=== PATIENT | female | born 1995 | race African-American/Black ===

== ENCOUNTER 2018-04-13 13:00 | Emergency (ER) | payer OTHER ==
[2018-04-13 13:14] VITALS: BP 121/61; PULSE 87; TEMP 98.1; BMI 42.0
[2018-04-13] MEDS ORDERED: diphenhydrAMINE HCL 25 MG CAPSULE (FP) PO ONE ×2 (14:01→14:05)
[2018-04-13] MEDS ORDERED: DEXAMETHASONE SOD PHOSPHATE 10 MG/1 ML VIAL IM ONE (14:01)
[2018-04-13] MEDS ORDERED: DEXAMETHASONE SOD PHOSPHATE 10 MG/1 ML VIAL ONE (14:04)
--- NOTE | 2018-04-13 14:11 | PDOC ---
History of Present Illness - General Chief Complaint: Bite Stated Complaint: CHEST PAIN, BITE Time Seen by Provider: 04/13/18 13:43 History Source: Patient Exam Limitations: No Limitations - History of Present Illness Initial Comments: 04/13/18 14:03 Works at [employer] and was outside walking with and she was bitten by some type of insect. 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 After the bee sting states felt some chest heaviness and some shortness of breath however denied facial swelling lip swelling tongue swelling or difficulty obtaining air/wheezing. Was sent immediately to emergency department for evaluation Timing/Duration: reports: just prior to arrival, intermittent Severity: Yes: mild, moderate Location: reports: none Respiratory Risk Factors: reports: insect bite, insect sting Modifying Factors: worse with: antihistamine (uncertain as to type of insect) Past History - Travel Traveled outside of the country in the last 30 days: No Close contact w/someone who was outside of country & ill: No - Past Medical History Allergies/Adverse Reactions: Allergies Allergy/AdvReac Type Severity Reaction Status Date / Time No Known Allergies Allergy Verified 04/13/18 13:10 Home Medications: Ambulatory Orders NK [No Known Home Medication] 04/13/18 COPD: No DVT: No - Immunization History Immunization Up to Date: Yes - Suicide/Smoking/Psychosocial Hx Smoking History: Never smoked Hx Alcohol Use: No Drug/Substance Use Hx: No Review of Systems - Review of Systems Able to Perform ROS?: Yes Is the patient limited Turkish proficient: Yes Constitutional: Yes: See HPI. No: Symptoms Reported, Chills, Fever, Malaise HEENTM: No: Symptoms Reported, Nose Congestion, Throat Pain, Throat Swelling, Difficulty Swallowing, Mouth Swelling Respiratory: Yes: Symptoms reported, See HPI, Shortness of Breath. No: Cough, Wheezing Cardiac (ROS): Yes: See HPI. No: Symptoms Reported, Palpitations, Syncope All Other Systems: Reviewed and Negative *Physical Exam - Vital Signs Last Vital Signs Temp Pulse Resp BP Pulse Ox 98.1 F 87 15 121/61 100 04/13/18 13:10 04/13/18 13:10 04/13/18 13:10 04/13/18 13:10 04/13/18 13:10 - Physical Exam General Appearance: Yes: Nourished, Appropriately Dressed. No: Apparent Distress HEENT: positive: HEBERT, Normal ENT Inspection, TMs Normal, Pharynx Normal (no swelling or angioedema noted to face, lips, tongue or pharynx. Airway is patent without wheezing or obstruction.) Neck: positive: Supple. negative: Tender Respiratory/Chest: positive: Lungs Clear, Normal Breath Sounds. negative: Respiratory Distress, Rales, Wheezing Gastrointestinal/Abdominal: positive: Soft. negative: Tender Musculoskeletal: positive: Normal Inspection. negative: Decreased Range of Motion Extremity: positive: Normal Capillary Refill, Normal Range of Motion (swelling and tenderness to lesion that is on the lateral epicondyles of left elbow. Is tender to touch with mild erythema but patient has full range of motion to joint , and neurovascular intact distal to lesion. ) Integumentary: positive: Dry, Warm, Pale Neurologic: positive: cost estimating manager II-XII NML intact, Fully Oriented, Alert, Normal Mood/ Affect, Normal Response, Motor Strength 5/5 Progress Note - Progress Note Progress Note: Insect bite with mild ALLERGIC versus anxiety reaction. Patient medicated with Decadron and Benadryl and will observe for 90 minutes Medical Decision Making - Medical Decision Making 04/13/18 14:39 Patient medicated with Decadron 10 mg and Benadryl 25 mg but after approximately 20 minutes stated she did not wish to stay for observation., Her work called requesting her to return so released after take over. Patient denies any wheezing, swelling, any worsening symptoms states has not had any shortness of breath since her arrival to ER and signed out AGAINST MEDICAL ADVICE. Reviewed risks of swelling, palpitations, wheezing facial swelling. Encouraged to call [phone] if symptoms recur and patient signed information sheet/ medical record AMA sheet verbalizing understanding consequences including for signing out and leaving before treatment completed *DC/Admit/Observation/Transfer Diagnosis at time of Disposition: Allergic reaction to insect bite Insect bite Qualifiers: Encounter type: initial encounter Qualified Code(s): W57.XXXA - Bitten or stung by nonvenomous insect and other nonvenomous arthropods, initial encounter - Discharge Dispostion Disposition: AGAINST MEDICAL ADVICE Condition at time of disposition: Good Decision to Admit order: No - Referrals - Patient Instructions Printed Discharge Instructions: How to Care for an Insect Bite or Sting - Post Discharge Activity
--- NOTE | 2018-04-16 12:09 | EKG ---
Test Reason : Blood Pressure : / mmHG Vent. Rate : 089 BPM Atrial Rate : 089 BPM P-R Int : 138 ms QRS Dur : 090 ms QT Int : 358 ms P-R-T Axes : 040 020 012 degrees QTc Int : 435 ms NORMAL SINUS RHYTHM NORMAL ECG NO PREVIOUS ECGS AVAILABLE Confirmed by TEJAL GEORGE, SETH ([id number]) on 04/16/2018 12:09:39 PM Referred By: Confirmed By:SETH TOURE MD
== END 2018-04-13 14:22 | disposition left against medical advice (07) ==
LOC: JERFT 13:00
PROC: 3E023GC Introduction of Other Therapeutic Substance into Muscle, Percutaneous Approach (ICD-10-PCS; principal; 2018-04-13)
DX: T63.481A Toxic effect of venom of other arthropod, accidental (unintentional), initial encounter (principal); W57.XXXA Bitten or stung by nonvenomous insect and other nonvenomous arthropods, initial encounter; Y93.89 Activity, other specified; Y92.238 Other place in hospital as the place of occurrence of the external cause; Y99.0 Civilian activity done for income or pay
CPT/HCPCS: 93005; 93010; 99281-25; J1100